=== PATIENT | female | born 1990 | race Two or more races ===

== ENCOUNTER 2022-12-19 08:59 | Day surgery (SDC) | payer MEDICAID ==
[~2022-12-19] VITALS: Ht 154.9 cm; Wt 93.0 kg
[2022-12-19] MEDS ORDERED: ONDANSETRON HCL 4 MG/2 ML VIAL IV ONE (09:00)
[2022-12-19] MEDS ORDERED: CIPROFLOXACIN 400MG/200ML 200 ML IV ONE (12:44)
[2022-12-19] MEDS ORDERED: MEPERIDINE HCL (25 MG/ML) 1ML VIAL ONE (12:54)
[2022-12-19] MEDS ORDERED: MIDAZOLAM HCL 2MG/2ML 2ml VIAL (1mg/ml) ONE (12:54)
[2022-12-19] MEDS ORDERED: fentaNYL CITRATE 100 MCG/2 ML VL ONE (12:54)
[2022-12-19] MEDS ORDERED: IOHEXOL 300 MG/ML 100ML BOTTLE IJ ONE (12:58)
[2022-12-19] MEDS ORDERED: DexAMETHasone SOD PHOS 10MG/1ML VIAL INJ ONE (13:28)
[2022-12-19] MEDS ORDERED: PROPOFOL 10 MG/ML 20 ML IV ONE (13:32)
[2022-12-19] MEDS ORDERED: SUGAMMADEX 200mg/2ml Vial (100MG/ML) IV ONE (14:10)
[2022-12-19] MEDS ORDERED: MIDAZOLAM HCL 2MG/2ML 2ml VIAL (1mg/ml) IV PRN (14:45)
[2022-12-19] MEDS ORDERED: LABETALOL HCL 5 MG/ML 4ML SYRINGE IV PRN (14:45)
[2022-12-19] MEDS ORDERED: ONDANSETRON HCL 4 MG/2 ML VIAL IV PRN (14:45)
[2022-12-19] MEDS ORDERED: HYDROmorphone HCL 2 MG/ML VL/or syr IV PRN (14:45)
[2022-12-19] MEDS ORDERED: hydrALAZINE HCL 20 MG/ML VL IV PRN (14:45)
[2022-12-19] MEDS ORDERED: MORPHINE SULFATE 4 MG/ML SYR/VIAL IV PRN (14:45)
[2022-12-19] MEDS ORDERED: ePHEDrine SULFATE 50 MG/ML AMP IV PRN (14:45)
[2022-12-19 15:15] VITALS: BP 146/81
== END 2022-12-19 15:30 | disposition home or self-care (01) ==
LOC: SUR 08:59
PROVIDERS: ATTEND Urology
DX: N20.0 Calculus of kidney (principal)
CPT/HCPCS: 52356; 74018; 76000; 81025; 88300; C2617; J0744; J1100; J2175; J2250; J2405; J2704; J3010; Q9967

== ENCOUNTER → 2023-01-14 | Day surgery (SDC) | payer MEDICAID ==
[~2023-01-14] VITALS: Ht 154.9 cm; Wt 90.7 kg
[~2023-01-14] MED LIST: CIPROFLOXACIN 400MG/200ML 200 ML IV ONE; HYDROmorphone HCL 2 MG/ML VL/or syr IV PRN; KETAMINE HCL 10 ML ONE; LIDOCAINE 2% (LOCAL ANESTH.) PF 5ml SDV ONE; METOCLOPRAMIDE HCL 5MG/ml INJ 2ml VIAL IV PRN; MIDAZOLAM HCL 2MG/2ML 2ml VIAL (1mg/ml) ONE; MORPHINE SULFATE INJ 2 MG/ml SYRG IV PRN; ONDANSETRON HCL 4 MG/2 ML VIAL ONE; PROPOFOL 10 MG/ML 20 ML IV ONE; SODIUM CHLORIDE LOCK 10 ML ONE; fentaNYL CITRATE 100 MCG/2 ML VL ONE
[2023-01-14 09:55] VITALS: PULSE 93; RESP 20; O2SAT 93
[2023-01-14 10:40] VITALS: BP 148/99; PULSE 78; RESP 16; O2SAT 98
== END | disposition home or self-care (01) ==
LOC: SUR 07:07
PROVIDERS: ATTEND Urology
DX: N20.0 Calculus of kidney (principal); Z88.2 Allergy status to sulfonamides; Z98.890 Other specified postprocedural states
CPT/HCPCS: 50590; 81025; J0744; J2001; J2250; J2405; J2704; J3010